=== PATIENT | female | born 1985 | race Caucasian/White ===

== ENCOUNTER 2018-09-19 15:02 | Emergency (ER) | payer OTHER ==
[~2018-09-19] VITALS: Ht 165.1 cm; Wt 68.0 kg
[~2018-09-19 15:02] MED LIST: DICY20TA3 PO
[2018-09-19] MEDS ORDERED: ACETAMINOPHEN 500 MG TABLET PO ONE (16:00)
[2018-09-19] MEDS ORDERED: LIDOCAINE 1% Multi-Dose 20 ML VIAL. INJ ONE (16:00)
[2018-09-19 16:23] LABS: BASO % 0 % (0-3); EOS % 0 % (0-3); HEMATOCRIT 39.5 % (36.0-47.0); HEMOGLOBIN 13.9 g/dL (12.0-15.5); LYMPH # 1.4 x10^3/uL (1.0-4.8); LYMPH % 14 % (24-48); MEAN CORPUSCULAR HEMOGLOBIN 31 pg (25-35); MEAN CORPUSCULAR HGB CONC 35 g/dL (31-37); MEAN CORPUSCULAR VOLUME 88 fL (79-100); MONO # 0.3 x10^3/uL (0.0-1.1); MONO % 4 % (0-9); NEUT # 7.9 x10^3uL (1.8-7.7); NEUT % 82 % (31-73); PLATELET COUNT 206 x10^3/uL (140-400); RED BLOOD COUNT 4.51 x10^6/uL (3.50-5.40); RED CELL DISTRIBUTION WIDTH 12.5 % (11.5-14.5); WHITE BLOOD COUNT 9.7 x10^3/uL (4.0-11.0)
[2018-09-19 16:24] LABS: BILIRUBIN,URINE NEGATIVE (NEG); CLARITY,URINE CLEAR; COLOR,URINE YELLOW; NITRITE,URINE NEGATIVE (NEG); PROTEIN,URINE NEGATIVE (NEG-TRACE)
[2018-09-19 16:30] LABS: CREATININE 0.8 mg/dL (0.6-1.0); GFR 83.7; POTASSIUM 3.7 mmol/L (3.5-5.1)
[2018-09-19 16:33] LABS: BACTERIA,URINE 0 /HPF (0-FEW); RBC,URINE 0 /HPF (0-2); SQUAMOUS EPITHELIAL CELL,UR FEW /LPF; WBC,URINE 0 /HPF (0-4)
--- NOTE | 2018-09-19 16:41 | PHYS DOC ---
Past Medical History Past Medical History: No Pertinent History Past Surgical History: Additional Past Surgical Histo: wisdom Alcohol Use: Occasionally Drug Use: None Adult General Chief Complaint Chief Complaint: SYNCOPE HPI HPI 33-year-old female presents to ER via POV for complaints of syncope episodes. Patient reports she was needing to have a BM and so as she was hurrying into [employer] she became light-headed and that's all she remembers until waking up on floor. Per husb. pt struck the right side of her head- has laceration. He reports initially pt was confused which lasted briefly and since has been NL on behavior/mental status. She denies N/V, vision changes, tinnitus, chest/neck/ back/abd pain, or incontinence of bowel/bladder. EMS had evaluated her at the scene and pt/husb. opted for her to go POV. Pt reports she went to another store and did have BM- denying blood/urinary sxs. Pt reports she has been on amoxicillin x5 days for bronchitis. She denies being smoker. She reports she is in [place] and had [place] last week and may not have been drinking enough water. LMP 09/10/18. Pt also has c/o rt hand pain, abrasion lt hand, and she bit her tongue. Pt denies dental injury. Pt reports being UTD on tetanus w/in past 5 yrs. Review of Systems Review of Systems Constitutional: Denies lethargyl Eyes: Denies change in visual acuity, redness, or eye pain. Reports pain at laceration site above rt eyebrow HENT: Denies nosebleed/nose injury. Denies ear drainage/tinnitus. Respiratory: Denies cough or shortness of breath [] Cardiovascular: Denies CP/palpitations GI: Denies abdominal pain, nausea, vomiting : Denies incontinence bowel/bladder Musculoskeletal: Denies back/neck pain or joint pain [] Integument: Denies laceration above rt eyebrow- swelling/bruising at site, abrasion lt hand Neurologic: Denies focal weakness or sensory changes. Reports mild headache- denies dizziness/lightheadedness All other systems were reviewed and found to be within normal limits, except as documented in this note. Current Medications Current Medications Current Medications Medications (Trade) Dose Ordered Sig/Zoie Start Time Stop Time Status Last Admin Dose Admin Acetaminophen (Tylenol) 1,000 mg 1X ONCE 09/19/18 16:00 09/19/18 16:04 DC 09/19/18 16:00 1,000 MG Lidocaine HCl (Lidocaine 1% 20ml Vial) 20 ml 1X ONCE 09/19/18 16:00 09/19/18 16:04 DC 09/19/18 16:00 20 ML Sodium Chloride 1,000 ml @ 1,000 mls/hr 1X ONCE 09/19/18 17:15 09/19/18 18:14 DC 09/19/18 17:10 1,000 MLS/HR Allergies Allergies Allergies Coded Allergies Type Severity Reaction Last Updated Verified No Known Drug Allergies 12/11/15 No Physical Exam Physical Exam Constitutional: Well developed, well nourished, no acute distress, non-toxic appearance. Clear speech and answering questions appropr. HENT: Normocephalic, bilateral ears normal, oropharynx moist, no oral exudates, nose normal. [] Eyes: 3mm PERRLA, EOMI- no eye pain with movements, no nystagmus, conjunctiva normal, no discharge. [] Neck: Normal range of motion, no tenderness with ROM- no midline cervical tenderness on palp. or palp. deformity, supple, no stridor. [] Cardiovascular:Heart rate regular rhythm, no murmur [] Lungs & Thorax: Bilateral breath sounds clear to auscultation. Resp. equal/ nonlabored. No chest wall tenderness Abdomen: Bowel sounds normal, soft- no rigidity, no tenderness, no masses, no pulsatile masses. [] Skin: Warm, dry Back: No tenderness- no midline spinal tenderness, no CVA tenderness. [] Extremities: Pelvis stable/nontender. , no cyanosis, no clubbing, ROM intact, no edema. [] Neurologic: Alert and oriented X 3, normal motor function, normal sensory function, no focal deficits noted. [] Psychologic: Affect normal, judgement normal, mood normal. [] Current Patient Data Vital Signs Vital Signs Date Time Temp Pulse Resp B/P (MAP) Pulse Ox O2 Delivery O2 Flow Rate FiO2 09/19/18 18:00 79 18 114/72 (86) 98 09/19/18 15:15 97.9 Room Air 97.9 Lab Values Laboratory Tests Test 09/19/18 15:32 09/19/18 15:40 09/19/18 16:12 09/19/18 16:16 Urine Collection Type Unknown Urine Color Yellow Urine Clarity Clear Urine pH 6.0 Urine Specific [place] 1.015 Urine Protein Negative mg/dL (NEG-TRACE) Urine Glucose (UA) Negative mg/dL (NEG) Urine Ketones (Stick) Negative mg/dL (NEG) Urine Blood Negative (NEG) Urine Nitrite Negative (NEG) Urine Bilirubin Negative (NEG) Urine Urobilinogen Dipstick 1.0 mg/dL (0.2 mg/dL) Urine Leukocyte Esterase Negative (NEG) Urine RBC 0 /HPF (0-2) Urine WBC 0 /HPF (0-4) Urine Squamous Epithelial Cells Few /LPF Urine Bacteria 0 /HPF (0-FEW) Urine Mucus Slight /LPF Glucose (Fingerstick) 96 mg/dL (70-99) White Blood Count 9.7 x10^3/uL (4.0-11.0) Red Blood Count 4.51 x10^6/uL (3.50-5.40) Hemoglobin 13.9 g/dL (12.0-15.5) Hematocrit 39.5 % (36.0-47.0) Mean Corpuscular Volume 88 fL (79-100) Mean Corpuscular Hemoglobin 31 pg (25-35) Mean Corpuscular Hemoglobin Concent 35 g/dL (31-37) Red Cell Distribution Width 12.5 % (11.5-14.5) Platelet Count 206 x10^3/uL (140-400) Neutrophils (%) (Auto) 82 % (31-73) H Lymphocytes (%) (Auto) 14 % (24-48) L Monocytes (%) (Auto) 4 % (0-9) Eosinophils (%) (Auto) 0 % (0-3) Basophils (%) (Auto) 0 % (0-3) Neutrophils # (Auto) 7.9 x10^3uL (1.8-7.7) H Lymphocytes # (Auto) 1.4 x10^3/uL (1.0-4.8) Monocytes # (Auto) 0.3 x10^3/uL (0.0-1.1) Eosinophils # (Auto) 0.0 x10^3/uL (0.0-0.7) Basophils # (Auto) 0.0 x10^3/uL (0.0-0.2) Sodium Level 135 mmol/L (136-145) L Potassium Level 3.7 mmol/L (3.5-5.1) Chloride Level 99 mmol/L (98-107) Carbon Dioxide Level 26 mmol/L (21-32) Anion Gap 10 (6-14) Blood Urea Nitrogen 10 mg/dL (7-20) Creatinine 0.8 mg/dL (0.6-1.0) Estimated GFR (Cockcroft-Gault) 83.7 Glucose Level 115 mg/dL (70-99) H Calcium Level 9.0 mg/dL (8.5-10.1) Troponin I Quantitative < 0.017 ng/mL (0.000-0.055) POC Urine HCG, Qualitative Hcg negative (Negative) Laboratory Tests 09/19/18 16:12 Laboratory Tests 09/19/18 16:12 EKG EKG EKG obtained at 1620 on 09/19/[address] Mayes Sinus Rhythm Rate 70 No STEMI Radiology/Procedures Radiology/Procedures Laceration repair 1940: #6 6.0 Dermabond PROCEDURE: CT HEAD AND MAXILLOFACIAL WO Examination: CT head and maxillofacial bones CT HEAD INDICATION: SYNCOPE, FALL, FOREHEAD LACERATION, PRIOR FACIAL SENT COMPARISON: None Available. Exposure: One or more of the following individualized dose reduction techniques were utilized for this examination: 1. Automated exposure control 2. Adjustment of the mA and/or kV according to patient size 3. Use of iterative reconstruction technique TECHNIQUE: 5 mm contiguous axial images were obtained from the skull base to the vertex in both bone and soft tissue algorithm. FINDINGS: No abnormal attenuation within the brain parenchyma. No evidence of acute intracranial hemorrhage. No extra-axial fluid collections. No mass effect or midline shift. Ventricular size is appropriate. Basal cisterns are patent. No fractures identified.[place]-white differentiation is preserved.Globes and orbits are within normal limits. Paranasal sinuses and mastoid air cells are clear. EXAM: CT FACIAL BONES WITHOUT CONTRAST HISTORY:: SYNCOPE, FALL, FOREHEAD LAC, PRIOR FACIAL SENT COMPARISON: 03/20/2015 TECHNIQUE: Noncontrast images of the facial bones are performed. Coronal and sagittal reformatted images are also presented for interpretation. FINDINGS: No fracture, dislocation or other acute bony abnormality is identified. There is no soft tissue abnormality or radiopaque foreign body. The paranasal sinuses and mastoid air cells are clear, without air-fluid levels. The globes and orbits are intact in CT appearance. There is no retrobulbar hematoma. IMPRESSION: 1. No acute intracranial findings. 2. No acute fracture of the facial bones. Electronically signed by: Pete Jaime MD (09/19/2018 4:53 PM) [facility] DICTATED and SIGNED BY: PETE JAIME MD DATE: 09/19/18 2353 PROCEDURE: HAND RIGHT 3V Examination: 3 views of the right hand HISTORY: History of injury to the right hand at the base of the fifth digit COMPARISON: None available FINDINGS: The alignment of the metacarpophalangeal, interphalangeal joints grossly appears unremarkable. There is no acute fracture identified. IMPRESSION: No acute osseous findings. Electronically signed by: Pete Jaime MD (09/19/2018 5:01 PM) [facility] DICTATED and SIGNED BY: PETE JAIME MD DATE: 09/19/18 2375 Course & Med Decision Making Course & Med Decision Making Pertinent Imaging studies reviewed. (See chart for details) [] Dragon Disclaimer Dragon Disclaimer This electronic medical record was generated, in whole or in part, using a voice recognition dictation system. Departure Departure Impression: Primary Impression: Head injury Additional Impression: Laceration Disposition: 01 HOME, SELF-CARE Condition: STABLE Referrals: NO PCP (PCP) Patient Instructions: Abrasions, Facial Laceration, Head Injury, Adult, Stitches, Jg or Skin Adhesive Strips, [id number] Additional Instructions: Sutures out in 5-7 days monitor wound for infection. Triple antibiotic ointment to wounds- avoid applying to area with Dermabond. Tylenol as needed for pain. After 24 hours Ibuprofen- both as needed as directed on container. Ice pack to facial injury every 3-4 hours for 20-minutes at a time. Scripts Orphenadrine Citrate (ORPHENADRINE CITRATE) 100 Mg Tablet.er 100 MG PO BID PRN for MUSCLE PAIN, #8 TAB.SR 0 Refills No driving or drinking alcohol while taking this Prov: JALYN YAP APRN 09/19/18 Problem Qualifiers JALYN YAP APRN Sep 19, 2018 16:41
--- NOTE | 2018-09-19 16:56 | RAD ---
Examination: CT head and maxillofacial bones CT HEAD INDICATION: SYNCOPE, FALL, FOREHEAD LACERATION, PRIOR FACIAL SENT COMPARISON: None Available. Exposure: One or more of the following individualized dose reduction techniques were utilized for this examination: 1. Automated exposure control 2. Adjustment of the mA and/or kV according to patient size 3. Use of iterative reconstruction technique TECHNIQUE: 5 mm contiguous axial images were obtained from the skull base to the vertex in both bone and soft tissue algorithm. FINDINGS: No abnormal attenuation within the brain parenchyma. No evidence of acute intracranial hemorrhage. No extra-axial fluid collections. No mass effect or midline shift. Ventricular size is appropriate. Basal cisterns are patent. No fractures identified.[place]-white differentiation is preserved.Globes and orbits are within normal limits. Paranasal sinuses and mastoid air cells are clear. EXAM: CT FACIAL BONES WITHOUT CONTRAST HISTORY:: SYNCOPE, FALL, FOREHEAD LAC, PRIOR FACIAL SENT COMPARISON: 03/20/2015 TECHNIQUE: Noncontrast images of the facial bones are performed. Coronal and sagittal reformatted images are also presented for interpretation. FINDINGS: No fracture, dislocation or other acute bony abnormality is identified. There is no soft tissue abnormality or radiopaque foreign body. The paranasal sinuses and mastoid air cells are clear, without air-fluid levels. The globes and orbits are intact in CT appearance. There is no retrobulbar hematoma. IMPRESSION: 1. No acute intracranial findings. 2. No acute fracture of the facial bones. Electronically signed by: Pete Jaime MD (09/19/2018 4:53 PM) [facility]
--- NOTE | 2018-09-19 17:05 | RAD ---
Examination: 3 views of the right hand HISTORY: History of injury to the right hand at the base of the fifth digit COMPARISON: None available FINDINGS: The alignment of the metacarpophalangeal, interphalangeal joints grossly appears unremarkable. There is no acute fracture identified. IMPRESSION: No acute osseous findings. Electronically signed by: Pete Jaime MD (09/19/2018 5:01 PM) [facility]
[2018-09-19] MEDS ORDERED: IV NORMAL SALINE 1000ML BAG 1,000 ML IV ONE (17:15)
--- NOTE | 2018-09-19 17:38 | EKG ---
[facility] [address] [place] [id number] Test Date: 2018-09-19 Test Time: 16:20:07 Pat Name: DONNA ALMANZA Department: Room: Gender: Female Rn Team Leader: : 1985 Requested By: JALYN YAP Order Number: [id number] Reading MD: Eulalio Brooke MD Measurements Intervals [place] Rate: 69 P: 42 [place]: 178 QRS: 42 QRSD: 80 T: 18 QT: 384 QTc: 417 Interpretive Statements SINUS RHYTHM Electronically Signed On 09-21-2018 10:24:48 COACH MECHANIC by Eulalio Brooke MD
[2018-09-19 18:00] VITALS: BP 114/72
[2018-09-19] MEDS ORDERED: ORPH100T PO (18:08)
== END 2018-09-19 18:30 | disposition home or self-care (01) ==
LOC: ER 15:02
DX: S01.81XA Laceration without foreign body of other part of head, initial encounter (principal); S60.512A Abrasion of left hand, initial encounter; M79.641 Pain in right hand; J40 Bronchitis, not specified as acute or chronic; R55 Syncope and collapse; R51 Headache; Z98.890 Other specified postprocedural states; W18.39XA Other fall on same level, initial encounter; Y93.89 Activity, other specified; Y92.59 Other trade areas as the place of occurrence of the external cause; Y99.8 Other external cause status
CPT/HCPCS: 12011; 36415; 70450; 70486; 73130; 80048; 81001; 81025; 82962; 84484; 85025; 93005; 96360; 99285; J7030